=== PATIENT | male | born 1950 | race Caucasian/White ===

== ENCOUNTER → 2023-09-29 06:38 | Outpatient (REF) | payer MEDICARE, OTHER, SELFPAY | LOC: RAD 06:38 | PROVIDERS: ATTENDING PHYSICIAN Surgery Vascular Surgery; FAMILY PHYSICIAN Family Medicine | DX: I73.9 Peripheral vascular disease, unspecified (principal) | CPT/HCPCS: 93922; 93925; 93978 ==

== ENCOUNTER 2024-03-22 09:10 | Emergency (ER) | payer MEDICARE, OTHER, SELFPAY ==
[2024-03-22 09:28] VITALS: BP 104/66
--- NOTE | 2024-03-22 11:14 | ED.GENMED ---
History of Present Illness
<Yaritza Blank PA-C - Last Filed: 03/22/24 23:25>
General
Chief Complaint: Musculo-Skeletal Complaint
Source: patient
Exam Limitations: none
Time Seen by Provider: 03/22/24 10:39
Nursing documentation reviewed up to this point in time: agreed with
History of Present Illness
History of Present Illness:
Patient is a 73-year-old male with history PAD, hypertension, hyperlipidemia presenting to the emergency department for evaluation of left ankle injury. Patient states that 2 days ago he had a mechanical slip and fall on the ice inverting his left
ankle. Patient denies any other injury sustained in the fall. No head strike.
Patient has been icing and elevating his left ankle and taking Aleve. He has been bearing weight with some pain. However�this morning his ankle was significantly more swollen prompting his visit the emergency department. Patient denies any
numbness/tingling in left lower extremity
Past History
<Yaritza Blank PA-C - Last Filed: 03/22/24 23:25>
Past History
ED Past Medical History: HTN and Hypercholesterolemia
ED Past Surgical History: Other (vascular left lower extremity)
Review of Systems
<Yaritza Blank PA-C - Last Filed: 03/22/24 23:25>
Review of Systems
Allergies reviewed?: Yes
All Other Systems: ROS reviewed and negative except as documented in HPI and ROS
Phy Exam
<Yaritza Blank PA-C - Last Filed: 03/22/24 23:25>
Physical Exam
Physical Exam:
Vitals: Patient's vital signs are stable
General: Patient is well appearing, no acute distress
Skin: Warm and dry, no rashes or lesions
Head: Normocephalic, atraumatic
Eyes: Sclera nonicteric. EOMs intact. No nystagmus.
Throat: Protecting airway
Neck: Normal ROM, no cervical spine tenderness, no meningismus
Cardiac: Regular rate and rhythm, no murmurs.
Pulm: Normal respiratory effort, no wheezes, rales, rhonchi heard on exam.
Abdomen: No abdominal tenderness.
Extremities: Edema and ecchymoses of left ankle. Point tender of both left lateral and medial malleolus. Dorsi flexion/plantarflexion of left ankle intact. No tenderness at base of left fifth metatarsal, midfoot, hindfoot, calcaneus. No
tenderness at head of left fibula. Achilles intact. Left knee atraumatic and nontender with full range of motion. Full range of motion in left hip, internal/external rotation without pain. DP pulses left lower extremity. Cap refill within
normal limits.
Neuro: AAOx3. CN II-XII intact. No focal neurologic deficits.
Psychiatric: Normal affect.
Course
<Yaritza Blank PA-C - Last Filed: 03/22/24 23:25>
Orders/Labs/Results
Orders:
Orders
03/22/24 09:30
CR Ankle - Left Min 3 Views Urgent
Comment:
Reason For Exam: Injury
03/22/24 11:26
Crutches-Treatment ONCE
Ortho Boot Left- Treatment ONCE
Short or tall?: Tall
Vital Signs
Initial and Last Documented VS:
Initial Vital Signs
Temp Pulse Resp BP Pulse Ox
97.7 F 95 16 104/66 98
03/22/24 09:28 03/22/24 09:28 03/22/24 09:28 03/22/24 09:28 03/22/24 09:28
Last Documented Vital Signs
Temp Pulse Resp BP Pulse Ox
97.7 F 95 16 104/66 98
03/22/24 09:28 03/22/24 09:28 03/22/24 09:28 03/22/24 09:28 03/22/24 09:28
<Abhilash Drake DO - Last Filed: 03/22/24 11:48>
Orders/Labs/Results
Orders:
Orders
03/22/24 09:30
CR Ankle - Left Min 3 Views Urgent
Comment:
Reason For Exam: Injury
03/22/24 11:26
Crutches-Treatment ONCE
Ortho Boot Left- Treatment ONCE
Short or tall?: Tall
Vital Signs
Initial and Last Documented VS:
Initial Vital Signs
Temp Pulse Resp BP Pulse Ox
97.7 F 95 16 104/66 98
03/22/24 09:28 03/22/24 09:28 03/22/24 09:28 03/22/24 09:28 03/22/24 09:28
Last Documented Vital Signs
Temp Pulse Resp BP Pulse Ox
97.7 F 95 16 104/66 98
03/22/24 09:28 03/22/24 09:28 03/22/24 09:28 03/22/24 09:28 03/22/24 09:28
<Yaritza Blank PA-C - Last Filed: 03/22/24 23:25>
MDM/Problems Addressed
Differential Diagnosis Includes:
Not limited to: Ankle fracture, ankle sprain, foot fracture, knee sprain,
MDM/Problems Addressed:
73 year old male with left ankle injury after mechanical slip and fall on ice two days ago. No head strike on LOC. No other injuries sustained. Vitals stable. Physical exam as above. An xray of left ankle was obtained in triage which shows a
comminuted left distal fibula fracture. Case discussed with orthopedics, Dr. Saab. Will have patient remain non-weightbearing w/ crutches and place in CAM boot. Recommend RICE. Patient will follow-up with orthopedics outpatient. Return
precautions discussed. Patient stable for discharge.
Chronic conditions affecting care:
N/A
Acute Exacerbation and/or Progression of Chronic Illness:
N/A
<Yaritza Blank PA-C - Last Filed: 03/22/24 23:25>
*Radiology
Radiology exam reviewed: preliminary read by ED provider (xray reviewed by me- left distal fibula fracture) and radiology read reviewed
*Pulse Oximetry
Patient hypoxic: no
*EKG
Interpreted by ED Provider?: NA
*Cottage Master Interpretation
Rate: Cottage Master- N/A
*Critical Care Note
Total Time (30-74mins, 75-104mins- exclusive of procedures): Not Applicable
<Yaritza Blank PA-C - Last Filed: 03/22/24 23:25>
Patient Management
Discussion with other providers: Talent Development Coordinator (Orthopedics)
ED Attending Note
<Yaritza Blank PA-C - Last Filed: 03/22/24 23:25>
-
Portions of this chart may have been created with voice recognition software.� Occasional wrong word or��sound alike� substitutions may have occurred due to the inherent limitations of voice recognition software.
<Abhilash Drake, - Last Filed: 03/22/24 11:48>
ED Attending Note
Patient seen and examined by attending physician: Yes
I performed a history and physical exam of patient and discussed management with resident, I reviewed resident's note and agree with documented findings and plan of care.: Yes
ED Attending Note:
I have reviewed and agree with history treatment plan by Yaritza Blank. Exam revealed 73-year-old male with left ankle swelling and ecchymosis. Neurovascular intact. Will treat with cam boot for left distal fibula fracture. Follow-up with
orthopedics.
Discharge Plan
Departure
Patient Disposition: Home (Routine Discharge)
Date of Disposition: 03/22/24
Time of Disposition: 11:35
Patient with high blood pressure during this ER visit?: No
Condition: Good
Covid-19: Not Applicable
Discharge Problem:
Fracture of distal end of left fibula
Instructions: How to Use Crutches, Ankle Fracture (DC)
Prescriptions:
No Action
lisinopril 20 MG tablet
20 mg PO DAILY
acetaminophen 325 MG tablet
500 mg PO PRN PRN (Reason: pain)
atorvastatin 40 MG tablet
80 mg PO QPM
clopidogrel 75 MG tablet
75 mg PO DAILY Qty: 30 2RF
aspirin 81 MG tablet,delayed release (DR/EC)
81 mg PO DAILY Qty: 30 0RF
Referrals:
Ulices Glil MD [Family Provider] -
Aspen Saab I., DO [Active] - Next open appointment
Activity Restrictions/Additional Instructions:
RETURN TO THE EMERGENCY DEPARTMENT WITH ANY SIGNIFICANT SWELLING OF LEFT LOWER LEG, INTRACTABLE PAIN, NUMBNESS/TINGLING IN LEFT LOWER LEG, WORSENING IN CURRENT SYMPTOMS, OR ANY OTHER CONCERNS
-As discussed�your x-ray did show a fracture of your left distal fibula. You should remain nonweightbearing in the Ortho boot until you are cleared by orthopedics.
-Continue to ice/elevate your left leg as often as possible. You can continue to take Tylenol and/or Motrin as needed for pain.
-Follow-up with orthopedics for further evaluation/management of ankle fracture. The contact information has been provided for you above.
Monitor your symptoms closely return to the emergency department with any acute worsening/new symptoms or any other concerns
Interventions
Interventions:
*Nursing Disposition Last Done: 03/22/24 12:00
ED-Musculoskeletal Assessment Last Done: 03/22/24 11:22
Discharge Date and Time
Discharge Date/Time: 03/22/24 12:00
Print Language: FAROESE
== END 2024-03-22 12:00 | disposition home or self-care (01) ==
LOC: EMR 09:10
PROVIDERS: EMERGENCY PHYSICIAN Emergency Medicine; FAMILY PHYSICIAN Family Medicine
DX: S82.832A Other fracture of upper and lower end of left fibula, initial encounter for closed fracture (principal); W00.0XXA Fall on same level due to ice and snow, initial encounter; I10 Essential (primary) hypertension; E78.00 Pure hypercholesterolemia, unspecified
CPT/HCPCS: 99283; 73610

== ENCOUNTER 2024-05-30 06:10 | Outpatient (RCR) | payer MEDICARE, OTHER, SELFPAY | END 2024-05-30 23:59 | disposition home or self-care (01) | LOC: RPT 06:10 | PROVIDERS: ATTENDING PHYSICIAN Physician Assistant Medical; FAMILY PHYSICIAN Family Medicine | DX: S82.832D Other fracture of upper and lower end of left fibula, subsequent encounter for closed fracture with routine healing (principal); R26.89 Other abnormalities of gait and mobility; Z73.6 Limitation of activities due to disability | CPT/HCPCS: 97110; 97162 ==

== ENCOUNTER 2024-06-20 06:53 | Outpatient (RCR) | payer MEDICARE, OTHER, SELFPAY | END 2024-06-20 08:22 | disposition home or self-care (01) | LOC: RPT 06:53 | PROVIDERS: ATTENDING PHYSICIAN Physician Assistant Medical; FAMILY PHYSICIAN Family Medicine | DX: S82.832D Other fracture of upper and lower end of left fibula, subsequent encounter for closed fracture with routine healing (principal); R26.89 Other abnormalities of gait and mobility; Z73.6 Limitation of activities due to disability | CPT/HCPCS: 97110; 97112 ==

== ENCOUNTER → 2024-06-29 16:39 | Outpatient (REF) | payer MEDICARE, OTHER, SELFPAY | LOC: RCS 16:39 | PROVIDERS: ATTENDING PHYSICIAN Family Medicine | DX: I35.0 Nonrheumatic aortic (valve) stenosis (principal) | CPT/HCPCS: 93306 ==

== ENCOUNTER → 2024-09-30 07:45 | Outpatient (REF) | payer MEDICARE, OTHER, SELFPAY | LOC: RAD 07:45 | PROVIDERS: ATTENDING PHYSICIAN Surgery Vascular Surgery; FAMILY PHYSICIAN Family Medicine | DX: I73.9 Peripheral vascular disease, unspecified (principal) | CPT/HCPCS: 93922; 93925; 93978 ==